=== PATIENT | female | born 1955 | race Caucasian/White ===

== ENCOUNTER 2024-11-07 05:53 | Day surgery (SDC) | payer MEDICARE, SELFPAY ==
[2024-11-07] VITALS (8 sets, daily range): BP systolic 119–166; BP diastolic 75–95; PULSE 57–68; RESP 14–20; TEMP 36.1–36.3; O2SAT 97–100; BMI 24.7
[2024-11-07] MEDS: Lactated Ringers 1,000 ML 15 ML IV (06:30)
--- NOTE | 2024-11-07 06:38 | PCM.HP.STD ---
HPI - General HPI Narrative Dee Dee Castillo is a delightful 69-year-old female with past medical history of hypertension well-controlled on lisinopril who presents today for consultation regarding excess upper eyelid skin. She was referred to us by Virginia Combs at [facility] dermatology. She has never had any eyelid surgery before, or any eye surgeries. No history of thyroid eye disease. She does not get any Botox. Patient reports that she has trouble with upward gaze and upward lateral gaze secondary to excess skin overhanging the eyelid margin/eyelashes. She reports that at a stoplight she has to bustamante her neck to look at the stoplight rather than just looking up by moving her eyelids. She is not a smoker No personal or family history of bleeding or clotting problems. 28 October 2024: Patient underwent visual field testing and was approved for upper lid blepharoplasty. She presents today for preoperative evaluation and discussion regarding postoperative expectations and plan. Current Encounter (DATE OF SURGERY H&P UPDATE): I saw and examined the patient this morning in pre-operative holding. We discussed risks and benefits of today's surgery and they would like to proceed. NO CHANGE in health history since last seen and evaluated. Ready to proceed with surgery. [facility] Medical History Post-menopausal Alcohol use Non-smoker Hypertension History of deviated nasal septum Home Medications ?Medication ?Instructions ?Recorded ?Last Taken ?Type lisinopril 5 mg tablet 5 mg PO QDAY 09/28/24 11/07/24 04:30 History carboxymethylcellulose sodium 1 % 1 drp EACH EYE TID #15 mL 11/07/24 Unknown Rx eye drops (Artificial Tears (carboxymethylcellulose)) erythromycin 5 mg/gram (0.5 %) eye 1 applic EACH EYE BID #3.5 grams 11/07/24 Unknown Rx ointment oxycodone 5 mg tablet 5 mg PO BID 5 days #10 tabs 11/07/24 Unknown Rx Allergy/AdvReac Type Severity Reaction Status Date / Time No Known Allergies Allergy Verified 11/07/24 06:18 Family History Other Asthma Cancer Diabetes Hypertension Surgical History Hx of colonoscopy History of carpal tunnel surgery of right wrist History of carpal tunnel surgery of left wrist H/O: section History of knee replacement Social History Smoking Status: Never smoker Vital Signs Vital Signs Vital Signs: 11/07/24 06:18 11/07/24 06:18 Temperature 97.4 F L Temperature Source Temporal Pulse Rate 68 Respiratory Rate 14 Respiratory Pattern Normal Blood Pressure 166/95 H Blood Pressure Mean 118 Blood Pressure Source Monitor Blood Pressure Position Sitting Blood Pressure Location Left Arm Pulse Ox 99 Oxygen Delivery Method Room Air Weight Weight: 144 lb 6.444 oz Body Mass Index (BMI) 24.7 Physical Exam Narrative Montero 1 skin Pupils: PERRL EOM: EOM intact bilaterally Forehead: No chronic frontalis use to overcome dermatochalasis/brow ptosis. Few static rhytids. Eyebrows: Normal position bilaterally above the rim Eyelids: MRD 1 was 2-3 mm bilaterally (slightly worse on the right) (ptosis of upper eyelids) Good levator function (approximately 14 mm) No lagophthalmos Snap back test: Normal (lid distraction ~8 mm though) Upper lid dermatochalasis bilaterally, obstructing vertical gaze bilaterally secondary to the skin. Weighing eyelids down. The skin is hanging over eyelashes and the lateral portions of upper lid margin. Assessment & Plan Assessment/Plan (1) Dermatochalasis of both upper eyelids: PLAN: Plan Discussed upper eyelid blepharoplasty. I talked to the patient extensively about the risks of this surgery, including bleeding, lagophthalmos, infection, damage to surrounding structures, asymmetries (we also pointed out existing asymmetries), poor scaring, surgical site dehiscence and wound formation, need for wound care, need for repeat operations, failure to obtain the desired result, DVT/PE, and the risks of anesthesia including (albeit under local/sedation), including stroke (from low blood pressure/ischemia or clot). The benefits and alternatives of this surgery were also discussed. All of their questions were answered, and they agreed to proceed with surgery. Will plan for upper eyelid blepharoplasty under sedation and local (skin only with maybe central slip of orbicularis to prevent bunching). Patient happy with the plan. Plan to submit for insurance and refer for visual field testing. Photos obtained today. Plan from 28 October 2024: Further discussed above-noted risks, benefits, and alternatives to the procedure. We discussed postoperative plan including elevation, cold compresses, and eye ointment. Patient would like to proceed. We again today in clinic discussed the risks, benefits, and alternatives to ptosis repair. She would like to defer ptosis repair at this time and reconsider at a later time as needed if the upper lid blepharoplasty does not improve her visual field significantly. We talked about how sometimes the upper eyelid skin can be weighing down the eyelid and can improve ptosis slightly, but that definitive treatment for her would likely be an open levator advancement or a mullerectomy. Patient will proceed with blepharoplasty only at this time. INTERVAL H&P PLAN, DATE OF SURGERY: Reiterated above noted risks, benefits, and alternatives. We will proceed with surgery today (upper eyelid blepharoplasty).
--- NOTE | 2024-11-07 06:54 | PCM.PRE.AN2 ---
ASA Classification* ASA Classification ASA Classification: 2 Assessment & Plan Anesthesia* Anesthesia Assessment Anesthesia Assessment: Discussed sedation and/or anesthesia options, risks, benefits, and alternatives with patient/parents/legal guardian/POA. Questions invited. The patient/parents/legal guardian/POA seems to understand and agrees to proceed with anesthesia plan. Reviewed the physical assessment, medical history, allergy history and patient home medications list prior to surgery/procedure/anesthetic and documented any changes. Performed airway and anesthesia risk assessments. Anesthesia Type Anesthesia Type: MAC History Source History Obtained from:: Patient and Chart Anesthesia Focused Assessment* Temperature: 97.4 F Pulse Rate: 68 Blood Pressure: 166/95 Respiratory Rate: 14 Pulse Ox: 99 Oxygen Delivery Method: Room Air Airway Assessment Mouth opens: >3 cm Mallampati Score: IV Teeth Condition: Caps/Crowns (Patient has several crowns. They are all tight.) Neck Range of motion (ROM): Limited ROM (Somewhat decreased extension) Focused Labs Anesthesia Preop lab: CBC CHEMISTRY COAG Pre-Assessment Diagnosis/Proposed Procedure Planned Operative Procedure(s): UPPER EYELID BLEPHAROPLASTY, bilateral Anesthesia History Anesthesia History - air transport professionals: Anesthesia History - air transport professionals Hx Hospitalization No 10/24/24 08:15 Any Problems With Anesthesia No 10/24/24 08:15 Cholinesterase deficiency No 10/24/24 08:15 You/Your Family Experience No 10/24/24 08:15 fever (hyperthermia) with Relationship Recent Exposure to Contagious No 11/07/24 06:18 Disease Does patient have nerve No 10/24/24 08:15 stimulator Patient instructed to have device shut off --Does patient have Pacemaker No 11/07/24 06:18 or ICD? When Was Last Pacemaker Check QUESTION #4 FULL TEXT: You/Your Family Experience fever (hyperthermia) with Anesthesia Last Oral Intake Last Oral intake: Last Oral Intake NPO since 04:11/07/24 06:18 Meds taken in AM with sips of Yes 11/07/24 06:18 water? Meds patient instructed to lisinopril 11/07/24 06:18 take am of surgery Any additional information?: Yes NPO since: 04:30 (Patient had black coffee at 4:30 AM.) Meds taken in AM with sips of water?: Yes PONV PONV - air transport professionals: PONV - air transport professionals Female Yes 10/24/24 08:15 HX of Motion Sickness No 10/24/24 08:15 HX of N/V After Surgery No 10/24/24 08:15 Non-Smoker Yes 10/24/24 08:15 Duration of Surgery greater Yes 10/24/24 08:15 than 60 minutes Number of Risk Factors 3 10/24/24 08:15 PONV Score Moderate Risk 10/24/24 08:15 Height & Weight Height & Weight: Anesthesia: Height & Weight Height 5 ft 4 in 11/07/24 06:18 Weight: 65.5 kg 11/07/24 06:18 Body Mass Index (BMI) 24.7 11/07/24 06:18 Respiratory Assessment Respiratory Assessment - air transport professionals: Respiratory Tract Infection Hx - air transport professionals Hx Respiratory Tract Infection No 10/24/24 08:15 STOP Sleep Apnea STOP Sleep Apnea - air transport professionals: STOP Sleep Apnea - air transport professionals Hx Hypertension Yes: CONTROLLED WITH MED 10/24/24 08:15 Hx Sleep Apnea No 10/24/24 08:15 CPAP BIPAP Do you snore loudly (louder No 10/24/24 08:15 than talking or can be heard Do you often feel tired/ No 10/24/24 08:15 fatigued/ sleepy during daytime? Has anyone observed you stop No 10/24/24 08:15 breathing during sleep? STOP Results Negative 10/24/24 08:15 QUESTION #5 FULL TEXT : Do you snore loudly (louder than talking or can be heard through closed doors)? Tobacco Use History Tobacco Use History - air transport professionals: Tobacco Use History - air transport professionals Tobacco Use Smoking Status Never smoker 10/24/24 08:15 Hx Tobacco Use No 10/24/24 08:15 Years Smoking Packs Smoked per Day Smoking Cessation Date was within the last 15 years Hx Smoking Cessation Date Hx Smoking Cessation Counseling Hematologic Medial History Hematologic Hx - air transport professionals: Hematologic Medical Hx - highway technician Hx of Blood Transfusion No 10/24/24 08:15 Hx of Transfusion in last 3 No 10/24/24 08:15 Months Date of Last Transfusion (if within last 3 months) Ever experience any problems No 10/24/24 08:15 with transfusion(s)? Specify any problems Hx of Preganancy in last 3 No 10/24/24 08:15 Months Nurse Filling Out Transfusion [email or web address] 10/24/24 08:15 & Questions: Date: 10/24/24 10/24/24 08:15 Time: 08:16 10/24/24 08:15 Patient unable to answer at this time (ie. confused, unrespo /Reproduction History /Reproductive History - air transport professionals: /Reproductive Hx- air transport professionals Hx Now No 10/24/24 08:15 Gestational Age (in weeks): EDC: Hx Hx Para Hx Section SAB No 10/24/24 08:15 Active Medications Active Medications: Current Medications Generic Name Dose Route Start Last Admin Trade Name Freq PRN Reason Stop Dose Admin Cefazolin Sodium 2 gm/ N/A 20 mls @ 400 mls/hr 11/07/24 07:30 IV 11/07/24 07:32 INTRAOP ONE Lactated Ringer's 1,000 mls @ 15 mls/hr 11/07/24 06:00 11/07/24 06:30 IV 15 mls/hr .Q48H GISELLE Administration PFSH Medical History Post-menopausal Alcohol use Non-smoker Hypertension History of deviated nasal septum Home Medications ?Medication ?Instructions ?Recorded ?Last Taken ?Type lisinopril 5 mg tablet 5 mg PO QDAY 09/28/24 11/07/24 04:30 History carboxymethylcellulose sodium 1 % 1 drp EACH EYE TID #15 mL 11/07/24 Unknown Rx eye drops (Artificial Tears (carboxymethylcellulose)) erythromycin 5 mg/gram (0.5 %) eye 1 applic EACH EYE BID #3.5 grams 11/07/24 Unknown Rx ointment oxycodone 5 mg tablet 5 mg PO BID 5 days #10 tabs 11/07/24 Unknown Rx Allergy/AdvReac Type Severity Reaction Status Date / Time No Known Allergies Allergy Verified 11/07/24 06:18 Family History Other Asthma Cancer Diabetes Hypertension Surgical History Hx of colonoscopy History of carpal tunnel surgery of right wrist History of carpal tunnel surgery of left wrist H/O: section History of knee replacement Social History Smoking Status: Never smoker Review of Systems (Anesthesia) ROS Narrative System reviewed and no additional complaints, except as documented.
[2024-11-07] MEDS: Cefazolin 2 GM in Syringe IV (07:45)
[2024-11-07] MEDS: Povidone Iodine 30 ML Opthalmic Sol 1 DRP ×2 (08:15)
[2024-11-07] MEDS: BACITRACIN/POLYMYXIN B 15 GM Tube 1 APPLIC (08:16)
[2024-11-07] MEDS: Lidocaine 1% /Epi 1:100 (20ml) 20 ML Vial (08:16)
[2024-11-07] MEDS: Bupiv/Epi 0.25% 30 ML Vial (08:16)
[2024-11-07] MEDS: Erythromycin Base 1 OPTH.TUBE 1 APPLIC (08:33)
--- NOTE | 2024-11-07 08:41 | PCM.POST.ANE ---
Anesthesia: Postop Eval I Current Vital Signs Temperature: 96.9 F Pulse Rate: 68 Blood Pressure: 119/75 Respiratory Rate: 20 Pulse Ox: 98 Oxygen Delivery Method: Room Air Assessment Airway patent: No Spontaneous unlabored respirations: No Mental status: Awake and Calm nausea: No Vomiting: No Anesthesia Complication: No Fluid Hydration Crystalloid volume administer (ml): 700 Total IV fluid infused: 700 Progress Note Anesthesia document: Postop Eval 1 completed: Yes
--- NOTE | 2024-11-07 09:23 | OP.PCM_ITS ---
Operative Report (Standard) Operative Information Date of Procedure: 11/07/24 Pre-Operative Diagnosis: Dermatochalasis upper eyelids bilaterally Post-Operative Diagnosis: Same Surgery/Procedure Performed: 1) Bilateral upper eyelid Blepharoplasty 93464 (50 modifier) (skin only except small strip of orbicularis centrally) erp developer: Yes Property Loss Insurance Claim Adjuster: Karoline Lau Tasks completed by cutting table operator first: Retracting Type of Anesthesia: MAC/Supplemental/Local (3 cc of a 50/50 mixture of 0.25% Marcaine with 1:200,000 epinephrine and 1% lidocaine with 1:200,000 epinephrine ) RN Documented Start/Stop Times: Operation Date: 11/07/24 07:30 Case Time Into Pre-Op 11/07/24 05:58 Out of Pre-Op 11/07/24 07:30 Anesthesia Start 11/07/24 07:33 Into Room 11/07/24 07:33 Procedure Start 11/07/24 08:06 Procedure End 11/07/24 08:30 Anesthesia End 11/07/24 08:34 Out of Room 11/07/24 08:34 Into Recovery 11/07/24 08:37 Out of Recovery 11/07/24 09:03 Into Phase II Recovery 11/07/24 09:04 Procedure Start Time: 08:06 Procedure Stop Time: 08:30 Select all DRAINS/GRAFTS/IMPLANTS that apply: None Estimated Blood Loss: minimal Specimen collected: No Description of surgery: Indications: Dee Dee Castillo is a delightful 69-year-old female with excess upper eyelid skin weighing down the eyelids and obstructing her visual [place]. Presents today for upper eyelid blepharoplasty. This was an insurance case, not cosmetic (reconstructive surgery). I talked to her about the risks, benefits, and alternatives to the procedure and she elected to proceed. OPERATIVE DETAILS: Patient was correctly identified in preoperative holding and marked (I marked the existing upper eyelid crease bilaterally which was 0.9 cm from the eyelid margin). She was taken back to the operating room where she was administered sedation and prepped and draped in sterile fashion with ophthalmic Betadine solution. A timeout was performed. Appropriate upper lid blepharoplasty skin markings were then confirmed with care taken to have 9 mm between the lid crease incision and the eyelid margin centrally, and at least 6 mm laterally, with care taken not to extend medial past the puncta. The incisions did not extend lateral to the orbital rim, and they were >1 cm from the brow superiorly. The desai were tested with skin pinch test and it looked like there was the appropriate amount of skin being excised. The skin was injected with the above noted solution. It was given time to take effect. A 15 blade scalpel was used to excise the excess upper eyelid skin within the markings bilaterally, leaving behind all of the orbicularis muscle except for a small strip in the middle of the excision so as to prevent bunching along the suture line. Hemostasis was obtained with Bovie electrocautery. Incisions were closed with a running 6-0 Prolene suture. The tails were taped with Steri-Strips. The same procedure was preformed on both up per eyelids. She tolerated the procedure well. The patient was awakened and taken to the PACU in stable condition. Surgical Findings: No lagophthalmos at the completion of the case Complications Complications: No Admit VTE Documentation VTE Mechan Device Prophylaxis: SCD's
--- NOTE | 2024-11-07 16:55 | POSTOPAN2_ITS ---
Anesthesia Postop Eval I Sum Postop Eval Completion status Anesthesia document: Postop Eval 1 completed: Yes Anesthesia Postop Eval I Summary Anesthesia Postop Eval I Summary: Anesthesia Postop Eval I: Assessment Summary Airway patent No 11/07/24 08:42 [email or web address] Spontaneous unlabored No 11/07/24 08:42 [email or web address] respirations Mental status Awake,Calm 11/07/24 08:42 [email or web address] nausea No 11/07/24 08:42 [email or web address] Vomiting No 11/07/24 08:42 [email or web address] Anesthesia Postop Eval I: Fluid Summary Crystalloid volume administer 700 11/07/24 08:42 [email or web address] (ml) Colloids volume administered ( ml) Blood Product volume administered (ml) Total IV fluid infused 700 11/07/24 08:42 [email or web address] Anesthesia Postop Eval I: Summary Notes Anesthesia Complication No 11/07/24 08:42 [email or web address] Anesthesia Complication Comment: Post-operative progress note Anesthesia: Postop Eval II Evaluation Mental status: Awake and Calm Pain Level: 0 nausea: No Vomiting: No Complications Anesthesia Complication: No
--- NOTE | 2024-11-07 16:55 | PCM.POSTANE2 ---
Anesthesia Postop Eval I Sum Postop Eval Completion status Anesthesia document: Postop Eval 1 completed: Yes Anesthesia Postop Eval I Summary Anesthesia Postop Eval I Summary: Anesthesia Postop Eval I: Assessment Summary Airway patent No 11/07/24 08:42 L [email or web address] Spontaneous unlabored No 11/07/24 08:42 L [email or web address] respirations Mental status Awake,Calm 11/07/24 08:42 L [email or web address] nausea No 11/07/24 08:42 L [email or web address] Vomiting No 11/07/24 08:42 L [email or web address] Anesthesia Postop Eval I: Fluid Summary Crystalloid volume administer 700 11/07/24 08:42 L [email or web address] (ml) Colloids volume administered ( ml) Blood Product volume administered (ml) Total IV fluid infused 700 11/07/24 08:42 L [email or web address] Anesthesia Postop Eval I: Summary Notes Anesthesia Complication No 11/07/24 08:42 L [email or web address] Anesthesia Complication Comment: Post-operative progress note Anesthesia: Postop Eval II Evaluation Mental status: Awake and Calm Pain Level: 0 nausea: No Vomiting: No Complications Anesthesia Complication: No
== END 2024-11-07 09:46 | disposition home or self-care (01) ==
LOC: SDC 05:55 → AC 05:56
PROVIDERS: PCP Family Medicine; Referring Provider Surgery Plastic and Reconstructive Surgery; Visit Provider Surgery Plastic and Reconstructive Surgery
PROC: (CPT 15823; principal; 2024-11-07 07:20)
DX: H02.834 Dermatochalasis of left upper eyelid (principal); H02.831 Dermatochalasis of right upper eyelid; I10 Essential (primary) hypertension; Z79.899 Other long term (current) drug therapy
CPT/HCPCS: 15823; 00103; J2405